=== PATIENT | male | born 1955 | race African-American/Black ===

== ENCOUNTER 2017-12-27 10:12 | Day surgery (SDC) | payer MEDICARE ==
[2017-12-26 09:28] VITALS: BMI 23.5
[2017-12-27] MEDS ORDERED: LIDOCAINE HCL 2% JELLY 10 ML CARTRIDGE ONE (11:00)
[2017-12-27] MEDS ORDERED: MIDAZOLAM HCL 2 MG/2 ML SINGLE DOSE VIAL ONE (11:11)
--- NOTE | 2017-12-27 11:30 | HP ---
History & Physical Update - History History: No Change - Physical Physical: No Change - Assessment Assessment: No Change - Plan Plan: No Change
--- NOTE | 2017-12-27 11:32 | OP ---
Operative Note - Note: Operative Date: 12/27/17 Pre-Operative Diagnosis: ca prostate Operation: prostate cryoablation and cystoscopy Post-Operative Diagnosis: Same as Pre-op Surgeon: Pineda Madrigal Anesthesiologist/HEARING INSTRUMENT SPECIALIST: Carlos Lindsay Anesthesia: General Estimated Blood Loss (mls): 0 Drains & Tubes with Location: 18 fr amaya Operative Report Dictated: Yes
[2017-12-27] MEDS ORDERED: ceFAZolin SODIUM 1 GM VIAL IVPB ONE (11:38)
[2017-12-27] MEDS ORDERED: ePHEDrine SULFATE 50 MG/1 ML AMPULE ONE (11:51)
[2017-12-27] MEDS ORDERED: oxyCODONE HCL 5 MG TABLET PO PRN (12:41)
[2017-12-27] MEDS ORDERED: ONDANSETRON 4 MG/2 ML VIAL IVPUSH PRN (12:41)
[2017-12-27] MEDS ORDERED: LACTATED RINGERS SOLUTION 1,000 ML IV SCH (12:45)
[2017-12-27 15:33] VITALS: TEMP 98
[2017-12-27 17:38] VITALS: BP 133/76; PULSE 92
--- NOTE | 2017-12-28 11:32 | OP ---
DATE OF OPERATION: 12/27/2017 PREOPERATIVE DIAGNOSIS: Prostate cancer. POSTOPERATIVE DIAGNOSIS: Prostate cancer. PROCEDURE: Prostate cryoablation and cystoscopy. SURGEON: Pineda Kapoor MD LEAD ASSEMBLER: None. ANESTHESIA: General via laryngeal mask. ANESTHESIOLOGIST: Geovanny Crespo MD and SPECIMENS: None. CULTURES: None. DRAINS: An 18-[place] Funez catheter. ESTIMATED BLOOD LOSS: Negligible. COMPLICATIONS: None. DESCRIPTION OF PROCEDURE: The patient was brought into the operating room and placed on the operating room table in supine position. After administration of intravenous antibiotics, sequential compression devices were placed, and general anesthesia was administered via laryngeal mask. The patient was placed in the dorsal lithotomy position. The perineum was shaved first, and the perineum and genitals were prepped and draped in the usual sterile manner. An 18-[place] Funez catheter was placed per urethra. Then 10 mL was placed in the balloon. The bladder was filled with 300 mL of sterile normal saline and clamped. Transrectal ultrasound of the prostate was done, and planning was done for the prostate cryoablation, which was focal on the left side. Once a plan was developed, the cryo probes were placed in the appropriate location. Measurements were taken for the length of the cryo freeze. Probes were set at the appropriate length. Temperature sensors were now placed, one at Denonvilliers' fascia and one in the external sphincter. Now the Funez catheter was removed. Flexible cystoscopy was performed. This demonstrated normal anterior urethra. Prostatic urethra measured approximately 4.5 cm in length and demonstrated a moderate bilobar occlusion. There are no punctures of the prostatic urethra. The bladder was emptied and thoroughly inspected. There were no foreign bodies, tumors, stones, or inflammation. Both ureteral orifices were in the usual location and clear efflux bilaterally. Flexible cystoscope was retroflexed upon itself, and the bladder neck area was visualized. No punctures of the bladder neck were seen. Now, a Super Stiff guidewire was passed through the flexible cystoscope, and the cystoscope was removed. The urethral warmer was passed over the guidewire into the bladder. Now, prostate cryoablation was done with 2 freeze/thaw cycles. At the end of the procedure, probes were removed. Hemostasis assured with direct pressure in the perineum. A sterile compressive dressing was applied with 4 x 4 and Tegaderms. He tolerated the procedure well and was awoken from anesthesia in the operating room and transferred to recovery in stable condition. PINEDA KAPOOR M.D. [id number]
== END 2017-12-27 15:45 | disposition home or self-care (01) ==
LOC: JASU-SURG 10:12
PROVIDERS: ATTEND Urology
PROC: 0V507ZZ Destruction of Prostate, Via Natural or Artificial Opening (ICD-10-PCS; principal; 2017-12-27 12:00)
DX: C61 Malignant neoplasm of prostate (principal)
CPT/HCPCS: 55873; C2618; 94760

== ENCOUNTER 2019-11-20 10:04 | Day surgery (SDC) | payer MEDICARE, OTHER ==
[2019-11-18 11:06] VITALS: BMI 22.5
[~2019-11-20 10:04] MED LIST: BACITRACIN 15 GM TUBE TOPICAL OINTMENT TP ONE
--- NOTE | 2019-11-20 11:43 | OP ---
Operative Note - Note: Operative Date: 11/20/19 Pre-Operative Diagnosis: prostate cancer Operation: prostate cryoablation and cystoscopy Post-Operative Diagnosis: Same as Pre-op Surgeon: Pineda Madrigal Anesthesiologist/HIDE AND SKIN FLESHING MACHINE OPERATOR: Jose Eduardo Alvarenga Anesthesia: General Estimated Blood Loss (mls): 0 Drains & Tubes with Location: 18 fr amaya Operative Report Dictated: Yes
[2019-11-20] MEDS ORDERED: PROPOFOL 20 ML ONE (11:52)
[2019-11-20] MEDS ORDERED: MIDAZOLAM HCL 2 MG/2 ML SINGLE DOSE VIAL ONE (11:52)
[2019-11-20] MEDS ORDERED: ceFAZolin SODIUM 1 GM VIAL ONE (12:41)
[2019-11-20] MEDS ORDERED: ceFAZolin SODIUM 1 GM VIAL IVPB ONE (12:42)
[2019-11-20] MEDS ORDERED: DEXAMETHASONE SOD PHOSPHATE 4 MG/1 ML VIAL ONE (12:47)
[2019-11-20] MEDS ORDERED: BACITRACIN 15 GM TUBE TOPICAL OINTMENT ONE (13:09)
[2019-11-20] MEDS ORDERED: BACITRACIN 15 GM TUBE TOPICAL OINTMENT TP ONE (13:45)
[2019-11-20] MEDS ORDERED: oxyCODONE HCL 5 MG TABLET PO PRN (14:02)
[2019-11-20] MEDS ORDERED: ONDANSETRON 4 MG/2 ML VIAL IVPUSH PRN (14:02)
[2019-11-20] MEDS ORDERED: KETOROLAC TROMETHAMINE 30 MG/1 ML VIAL IVPUSH ONE (14:10)
[2019-11-20] MEDS ORDERED: ACETAMINOPHEN 1000 MG/100 ML VIAL (NON FORMULARY) IVPB ONE (14:10)
[2019-11-20] MEDS ORDERED: LACTATED RINGERS SOLUTION 1,000 ML IV SCH (14:15)
--- NOTE | 2019-11-20 15:12 | OP ---
DATE OF OPERATION: 11/20/2019 PREOPERATIVE DIAGNOSIS: Prostate cancer. POSTOPERATIVE DIAGNOSIS: Prostate cancer. PROCEDURE: Prostate cryoablation and cystoscopy. SURGEON: Pineda Kapoor MD MARINE ELECTRICIAN HELPER: None. ANESTHESIA: General via laryngeal mask. ANESTHESIOLOGIST: Jose Eduardo Alvarenga MD SPECIMENS: None. CULTURES: None. DRAINS: 18-[place] Funez catheter. ESTIMATED BLOOD LOSS: Negligible. COMPLICATIONS: None. DESCRIPTION OF PROCEDURE: Patient was brought into the operating room. Placed on the operating room table in a supine position. After administration of general anesthesia via laryngeal mask, intravenous antibiotics were administered. Sequential compression devices were placed. Patient was placed in a dorsal lithotomy position. Perineum was shaved first then perineum and genitals were prepped and draped in usual sterile manner; 18-[place] Funez catheter was placed per urethra into the bladder; 10 mL was placed in the balloon. Urine was evacuated, and the bladder was then filled with 400 mL with sterile normal saline and clamped. [place]oban drape was placed to elevate the scrotum. Transrectal ultrasound probe was inserted into the rectum, and transrectal ultrasound of the prostate was done, and a plan was devised for whole gland prostate cryoablation using 6 probes. The 6 cryoablation probes were now placed in their appropriate locations under ultrasound guidance. Two temperature sensors were placed, 1 in external sphincter, 1 in Denonvilliers fascia. Now indwelling Funez catheter was removed after appropriate lengths were placed on the cryoablation probes. Now flexible cystoscopy was performed. Demonstrated normal anterior urethra. Prostatic urethra measured approximately 4 cm in length. Demonstrated moderate bilobar occlusion. The bladder was entered, thoroughly inspected. There were no foreign bodies, tumors, stones, or inflammation. Both ureteral orifices were in their usual location with clear efflux bilaterally. The Super Stiff guidewire was now inserted through the cystoscope into the bladder and then the cystoscope was removed. The urethral warmer was passed over the Super Stiff guidewire into the bladder, and the guidewire was then removed. Urethral warming was begun. Now prostate cryoablation was done under ultrasound guidance with 2 freeze/thaw cycles. There was excellent ablation of the entire gland of the prostate. At the end of the procedure, the cryoablation probes and the temperature sensors were removed, and with manual pressure on the perineum, hemostasis was assured. A sterile compressive dressing was applied with bacitracin, 4 x 4, and Tegaderm. Urethral warmer was left in place an additional 5 minutes and then an 18-[place] Funez catheter was replaced, placed on gravity drainage, returned clear. He tolerated the procedure well. Transferred to the recovery in stable condition. PINEDA KAPOOR M.D. [id number]
[2019-11-20 16:23] VITALS: TEMP 98
[2019-11-20 19:20] VITALS: BP 115/71; PULSE 74
== END 2019-11-20 17:45 | disposition home or self-care (01) ==
LOC: JASU-SURG 10:04
PROVIDERS: ATTEND Urology
PROC: 0V503ZZ Destruction of Prostate, Percutaneous Approach (ICD-10-PCS; principal; 2019-11-20 12:00)
DX: C61 Malignant neoplasm of prostate (principal)
CPT/HCPCS: 55873; C2618; 94760; J0131